=== PATIENT | female | born 1945 | race Caucasian/White ===

== ENCOUNTER 2021-12-29 12:17 | Outpatient (CLI) | payer MEDICARE | END 2021-12-29 23:59 | disposition home or self-care (01) | LOC: RAD 12:17 | PROVIDERS: ATTEND Psychiatry & Neurology Neurology | DX: R94.01 Abnormal electroencephalogram [EEG] (principal); G40.909 Epilepsy, unspecified, not intractable, without status epilepticus | CPT/HCPCS: 95816 ==